=== PATIENT | female | born 1990 | race Two or more races ===

== ENCOUNTER 2018-09-14 01:11 | Emergency (ER) | payer OTHER ==
[~2018-09-14] VITALS: Ht 157.5 cm; Wt 113.4 kg
[2018-09-14 01:30] VITALS: BP 123/84
--- NOTE | 2018-09-14 01:30 | NUR ---
ED Nurse Note: pt walked in c/o kendal wrist pain for weeks, denies injuries. 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
--- NOTE | 2018-09-14 02:10 | NUR ---
ED Nurse Note: pt is cleared to be d/c per ERMD, pt left without discharge paperwork and signing papers, pt advised to follow up with pcp or return to ed, pt education done prior to d/c, pt d/c instruction was provided by ERMD. ambulatory w/ steady gait, all belongings left w/ pt, airway intact, resp even and unlabored.
--- NOTE | 2018-09-14 03:54 | Emergency Room Report ---
History of Present Illness General Chief Complaint: Upper Extremity Injury Source: Patient Present Illness HPI Patient presents with complaints of pain to both of her wrists Ongoing for several months Denies any fall or trauma Patient reports a she lifts heavy objects at work Denies any other repetitive motion such as typing Denies any elbow pain Denies any redness or swelling pain is worse with touch or full flexion and extension Allergies: Coded Allergies: No Known Allergies (Unverified , 09/14/18) Patient History Past Medical History: see triage record Pertinent Family History: none Last Menstrual Period: 08/30/2018 Now: No Reviewed Nursing Documentation: PMH: Agreed; PSxH: Agreed Nursing Documentation-PMH Past Medical History: No Stated History Review of Systems All Other Systems: negative except mentioned in HPI Physical Exam Vital Signs Date Time Temp Pulse Resp B/P (MAP) Pulse Ox O2 Delivery O2 Flow Rate FiO2 09/14/18 01:21 98.1 98 16 131/92 98 09/14/18 01:30 Room Air Sp02 EP Interpretation: reviewed, normal General Appearance: well appearing, no apparent distress Head: normocephalic, atraumatic Eyes: bilateral eye PERRL, bilateral eye EOMI ENT: normal pharynx Neck: supple Respiratory: no respiratory distress, no retraction Cardiovascular #1: regular rate, rhythm Gastrointestinal: non tender, soft Musculoskeletal: normal inspection - Subjectively points to the base of the thumb bilaterally for the discomfort however full extension flexion intact no reproduction of pain Neurologic: alert, oriented x3 Skin: normal color, no rash Lymphatic: no adenopathy Medical Decision Making Diagnostic Impression: Primary Impression: wrist pain, bilateral ER Course Patient has a fairly benign evaluation The clinical history does not correlate with obvious carpal tunnel type syndrome Patient also does not have her hand in extension such as typing or other repetitive motion After the medical evaluation is otherwise stable for close outpatient follow-up Last Vital Signs Date Time Temp Pulse Resp B/P (MAP) Pulse Ox O2 Delivery O2 Flow Rate FiO2 09/14/18 01:30 98.1 78 16 123/84 98 Room Air Status: unchanged Disposition: HOME, SELF-CARE Condition: Stable Scripts No Active Prescriptions or Reported Meds Referrals: [facility] Patient Instructions: Wrist Pain, [id number] Additional Instructions: Patient is provided with the discharge instructions notified to follow up with primary doctor in the next 2-3 days otherwise return to the er with any worsening symptoms. Please note that this report is being documented using DRAGON technology. This can lead to erroneous entry secondary to incorrect interpretation by the dictating instrument. Jannie Laboy DO Sep 14, 2018 03:54
== END 2018-09-14 02:20 | disposition home or self-care (01) ==
LOC: EMR 01:40
DX: M25.532 Pain in left wrist (principal); M25.531 Pain in right wrist; F17.200 Nicotine dependence, unspecified, uncomplicated; X50.0XXA Overexertion from strenuous movement or load, initial encounter; Y92.69 Other specified industrial and construction area as the place of occurrence of the external cause; Y99.9 Unspecified external cause status
CPT/HCPCS: 99281

== ENCOUNTER 2019-09-14 23:29 | Emergency (ER) | payer OTHER ==
[~2019-09-14] VITALS: Ht 157.5 cm; Wt 113.4 kg
--- NOTE | 2019-09-14 23:45 | NUR ---
ED Nurse Note: pt presents to ED c/o diffuse abd px x 10 days. pt denies N/V/D. dysuria x 2 days. patient ao4. vss. reports pain 10/10; facial grimacing and crying noted. patient ambulated to bed with steady gait. changed into gown; attached to monitor. safety measures met. will continue to monitor.
[2019-09-15] VITALS: BP 118/59
[2019-09-15] MEDS ORDERED: Morphine Sulfate 4mg/ml Inj (IV USE ONLY) IVP ONE
--- NOTE | 2019-09-15 | NUR ---
ED Nurse Note: iv access established. blood and urine collected; sent down to lab.
--- NOTE | 2019-09-15 00:01 | Emergency Room Report ---
History of Present Illness General Chief Complaint: Abdominal Pain Source: Patient Present Illness HPI This is a 29-year-old with no past medical history. She presents with complaint abdominal pain. Onset for a week and a half now. Pain is sharp and crampy in nature. Localized to the lower quadrants. Mostly in the right side however. Pain is 8 out of 10. No radiation. She is eating drinking without any problem. No nausea no vomiting or diarrhea. Nothing made it better. Movement made it worse. No urinary complaint. Never had this problem before. Allergies: Coded Allergies: No Known Allergies (Unverified , 09/14/18) Patient History Past Medical History: see triage record, old chart reviewed Past Surgical History: none Pertinent Family History: none Social History: Denies: smoking Last Menstrual Period: 09/03/19 Now: No : 4 Para: 4 Immunizations: other Reviewed Nursing Documentation: PMH: Agreed; PSxH: Agreed Review of Systems Eye: Denies: eye pain, blurred vision ENT: Denies: ear pain, nose congestion, throat swelling Respiratory: Denies: cough, shortness of breath Cardiovascular: Denies: chest pain, palpitations Gastrointestinal: Reports: abdominal pain; Denies: diarrhea, nausea, vomiting Musculoskeletal: Denies: back pain, joint pain Skin: Denies: rash Neurological: Denies: headache, numbness Endocrine: Denies: increased thirst, increased urine Hematologic/Lymphatic: Denies: easy bruising All Other Systems: negative except mentioned in HPI Physical Exam Vital Signs Date Time Temp Pulse Resp B/P (MAP) Pulse Ox O2 Delivery O2 Flow Rate FiO2 09/14/19 23:40 98.4 95 18 118/59 (78) 98 Vitals normal Sp02 EP Interpretation: reviewed, normal General Appearance: well appearing, no apparent distress, alert Head: normocephalic, atraumatic Eyes: bilateral eye PERRL, bilateral eye EOMI ENT: hearing grossly normal, normal pharynx Neck: full range of motion, supple, no meningismus Respiratory: chest non-tender, lungs clear, normal breath sounds Cardiovascular #1: regular rate, rhythm, no murmur Gastrointestinal: normal bowel sounds, no mass, no organomegaly, no bruit, non- distended, tenderness - Lower quadrants Musculoskeletal: back normal, normal range of motion, gait/station normal Psychiatric: mood/affect normal Medical Decision Making Diagnostic Impression: Primary Impression: Hepatitis Additional Impressions: Enteritis Methamphetamine abuse UTI (urinary tract infection) Qualified Codes: N30.00 - Acute cystitis without hematuria ER Course Patient with abdominal pain. CT scan showed possible enteritis. Will go ahead and put her on antibiotics is been going on for a while. She does have an elevated liver enzyme. May be secondary to hepatitis. She does have history of methamphetamine abuse. She said she smoked it. Denies any injection. She will need further work-up for her hepatitis. No evidence of acute abdomen. Will discharge home. CT/MRI/US Diagnostic Results CT/MRI/US Diagnostic Results : Imaging Test Ordered: CT abdomen pelvis Impression Read by radiologist. Wall thickening of the proximal small bowel loops. Prominent mesenteric nodes. Hepatomegaly. Last Vital Signs Date Time Temp Pulse Resp B/P (MAP) Pulse Ox O2 Delivery O2 Flow Rate FiO2 09/14/19 23:40 98.4 95 18 118/59 (78) 98 Status: improved Disposition: HOME, SELF-CARE Condition: Stable Scripts Ciprofloxacin Hcl* (CIPROFLOXACIN HCL*) 500 Mg Tablet 500 MG ORAL Q12H, #14 TAB 0 Refills Prov: Christopher Oquendo MD 09/15/19 Ibuprofen* (MOTRIN*) 600 Mg Tablet 600 MG ORAL THREE TIMES A DAY, #30 TAB 0 Refills Prov: Christopher Oquendo MD 09/15/19 Additional Instructions: Abstain from drugs and alcohol. Follow-up with your doctor in 7 days. You will need further work-up with repeat blood work on your liver. Return if symptoms worsen. Christopher Oquendo MD Sep 15, 2019 00:01
[2019-09-15 00:21] LABS: BASOPHILS % (AUTO) 0.5 % (0.0-2.0); EOSINOPHILS % (AUTO) 0.8 % (0.0-3.0); HEMATOCRIT 31.2 % (37.0-47.0); HEMOGLOBIN 10.3 G/DL (12.0-16.0); LYMPHOCYTES % (AUTO) 14.9 % (20.0-45.0); MEAN CORPUSCULAR VOLUME 78 FL (80-99); MONOCYTES % (AUTO) 5.4 % (1.0-10.0); NEUTROPHILS % (AUTO) 78.5 % (45.0-75.0); PLATELET COUNT 369 K/UL (150-450); RED BLOOD COUNT 3.98 M/UL (4.20-5.40); WHITE BLOOD COUNT 12.8 K/UL (4.8-10.8)
[2019-09-15 00:23] LABS: APPEARANCE,URINE CLEAR; BILIRUBIN, URINE NEGATIVE (NEGATIVE); GLUCOSE, URINE (UA) NEGATIVE (NEGATIVE); KETONES,URINE NEGATIVE (NEGATIVE); LEUKOCYTE ESTERASE ,URINE 2+ (NEGATIVE); NITRITE,URINE NEGATIVE (NEGATIVE); PH,URINE 5 (4.5-8.0); PROTEIN,URINE 1+ (NEGATIVE); UROBILINOGEN,URINE NORMAL MG/DL (0.0-1.0)
[2019-09-15 00:33] LABS: COLOR,URINE YELLOW
[2019-09-15 00:35] LABS: ANION GAP 9 mmol/L (5-15); BLOOD UREA NITROGEN 11 mg/dL (7-18); CALCIUM 8.4 MG/DL (8.5-10.1); CARBON DIOXIDE 30 MMOL/L (21-32); CHLORIDE 103 MMOL/L (98-107); CREATININE 0.7 MG/DL (0.55-1.30); POTASSIUM 3.7 MMOL/L (3.5-5.1); SODIUM 141 MMOL/L (136-145)
[2019-09-15 00:39] LABS: ALANINE AMINOTRANSFERASE 443 U/L (12-78); ALBUMIN 2.9 G/DL (3.4-5.0); ALBUMIN/GLOBULIN RATIO 0.6 (1.0-2.7); ALKALINE PHOSPHATASE 259 U/L (46-116); ASPARTATE AMINO TRANSFERASE 245 U/L (15-37); BILIRUBIN,TOTAL 0.3 MG/DL (0.2-1.0)
[2019-09-15] MEDS ORDERED: cefTRIAXone 1 GM in NS 55 ML IVPB ONE (00:45)
[2019-09-15 01:30] VITALS: BP 121/61
--- NOTE | 2019-09-15 01:48 | Diagnostic Imaging Report ---
Indication: Abdominal pain for 2 days Technique: Spiral acquisitions obtained through the abdomen and pelvis. No oral contrast utilized, per emergency room physician request No IV contrast utilized, per referring physician request.. Multiplanar reconstructions were generated. Total dose length product 1011 mGycm. CTDIvol(s) 16 mGy. Dose reduction achieved using automated exposure control Comparison: None Findings: Normal appendix. No evidence of diverticulosis or diverticulitis. A few mildly prominent small bowel loops are seen in the left upper quadrant with equivocal slight congestion of the mesentery. No free or loculated intraperitoneal gas or fluid is evident. Distal esophagus, stomach, duodenum are unremarkable. Lack of IV contrast limits assessment of the solid organs. The dome of the liver is excluded from imaging volume. No focal lesions demonstrated in the visualized portion of the liver. The liver is equivocally mildly enlarged The gallbladder has been surgically removed. No biliary ductal dilatation. The pancreas, spleen, adrenals, kidneys are unremarkable. There are prominent but not frankly enlarged mesenteric root lymph nodes. There are prominent but not frankly enlarged retroperitoneal and pelvic nodes. No pelvic mass. The uterus is unremarkable. Left ovary is slightly prominent. The included lung bases demonstrate some posterior dependent atelectatic changes. The bones demonstrate degenerative spondylosis changes. Impression: Limited exam due to exclusion of the dome of the liver from imaging volume Mildly prominent and possibly slightly thick walled left upper quadrant small bowel loops with slight mesenteric congestion, could indicate mild enteritis changes. Correlate with clinical findings Prominent left ovary, consider pelvic sonogram to better characterize Equivocal mild hepatomegaly This agrees with the preliminary interpretation provided overnight by [facility]erad[facility] service. The CT scanner at [facility] is accredited by the [employer] and the scans are performed using protocols designed to limit radiation exposure to as low as reasonably achievable to attain images of sufficient resolution adequate for diagnostic evaluation.
[2019-09-15] MEDS ORDERED: IBUPROFEN600 MG ORAL (01:50)
[2019-09-15] MEDS ORDERED: CIPROFLOXACIN500 M2 ORAL (01:50)
[2019-09-15 02:00] VITALS: BP 121/61
--- NOTE | 2019-09-15 02:02 | NUR ---
ER DISCHARGE NOTE: Patient is cleared to be discharged per ERMD, pt is aox4, on room air, with stable vital signs. pt was given dc and prescription instructions, pt was able to verbalize understanding, pt id band and iv site removed without complications. pt is able to ambulate with steady gait. pt took all belongings.
== END 2019-09-15 02:00 | disposition home or self-care (01) ==
LOC: EMR 23:59
DX: K75.9 Inflammatory liver disease, unspecified (principal); K52.9 Noninfective gastroenteritis and colitis, unspecified; F15.10 Other stimulant abuse, uncomplicated; N30.00 Acute cystitis without hematuria
CPT/HCPCS: 36415; 74176; 80053; 80307; 81003; 81025; 83690; 85025; 87086; 96361; 96365; 96375; J0696; J2270; J2405; J7030; Z7502; 99284

== ENCOUNTER 2019-10-02 08:53 | Emergency (ER) | payer OTHER ==
[~2019-10-02] VITALS: Ht 162.6 cm; Wt 77.1 kg
[~2019-10-02 08:53] MED LIST: CIPROFLOXACIN500 M2 ORAL; IBUPROFEN600 MG ORAL
[2019-10-02 09:10] VITALS: BP 122/70
--- NOTE | 2019-10-02 09:12 | NUR ---
ED Nurse Note: Patient walked in to ER from home due to Rt side of abdoman pain 10/10 for a month but got worsen this morning. pt aao x4 and ambulatory. calm but gramicing for pain at this moment. skin clean and intact. no cardiac or pulmonary distress noted. pt is in gown and on vamper.
[2019-10-02] MEDS ORDERED: Morphine Sulfate 4mg/ml Inj (IV USE ONLY) IVP ONE (09:15)
--- NOTE | 2019-10-02 09:33 | NUR ---
ED Nurse Note: US initiated at bedside.
--- NOTE | 2019-10-02 09:41 | Emergency Room Report ---
History of Present Illness General Chief Complaint: Abdominal Pain Source: Patient Present Illness HPI 29-year-old female history of methamphetamine abuse presented for right upper quadrant abdominal pain. Symptoms present for the past day or so. Seen 2 weeks ago in our ER. CT scan of the abdomen and pelvis demonstrated fatty liver with possible enteritis. Patient was given ciprofloxacin for urinary tract infection and discharged home. Patient completed antibiotic course however pain is been persistent. She denied any fevers, nausea, vomiting. She denies any urinary complaints. She denies any fever. On last visit patient's LFTs were elevated, she has a history of cholecystectomy in the past. Pain is 10 out of 10 right upper quadrant and nonradiating. Allergies: Coded Allergies: No Known Allergies (Unverified , 09/14/18) Patient History Past Medical History: see triage record Last Menstrual Period: a week ago Reviewed Nursing Documentation: PMH: Agreed; PSxH: Agreed Nursing Documentation-PMH Past Medical History: No History, Except For Review of Systems All Other Systems: negative except mentioned in HPI Physical Exam Vital Signs Date Time Temp Pulse Resp B/P (MAP) Pulse Ox O2 Delivery O2 Flow Rate FiO2 10/02/19 09:03 98.2 85 15 118/71 (87) 99 Room Air Sp02 EP Interpretation: reviewed, normal General Appearance: well appearing, no apparent distress Head: normocephalic, atraumatic Eyes: bilateral eye PERRL, bilateral eye EOMI ENT: hearing grossly normal, moist mucus membranes Neck: full range of motion, supple Respiratory: lungs clear, normal breath sounds, no rhonchi, no respiratory distress, no retraction, no wheezing Cardiovascular #1: normal peripheral pulses, regular rate, rhythm, no murmur Gastrointestinal: soft, non-distended, no guarding, other - Mild right upper quadrant tenderness to palpation Genitourinary: no CVA tenderness Neurologic: alert, oriented x3, no focal defects Skin: normal color, warm/dry Medical Decision Making Diagnostic Impression: Primary Impression: Urinary tract infection Additional Impressions: Right upper quadrant abdominal pain Methamphetamine abuse ER Course Differential diagnosis included but not limited to UTI, retained gallstone, hepatitis, fatty liver, pyelonephritis, kidney stone to name a few. Previous record was reviewed during last visit patient did have evidence of UTI also evidence of transaminitis. Patient does admit to using methamphetamine 2 days ago. Today transaminitis has resolved. Urinalysis still with evidence of UTI. I did obtain an ultrasound of the right upper quadrant which demonstrated fatty liver without evidence of biliary obstruction. Patient's pain was controlled in the ER. She had no active vomiting. Vital signs stable. No leukocytosis on laboratory studies noted. My plan is to discharge patient on continued oral antibiotic and analgesic and encouraged her to stop using methamphetamine, establish care with her primary doctor. She was given return precautions. Laboratory Tests Test 10/02/19 09:10 White Blood Count 9.8 K/UL (4.8-10.8) Red Blood Count 4.22 M/UL (4.20-5.40) Hemoglobin 10.4 G/DL (12.0-16.0) L Hematocrit 32.0 % (37.0-47.0) L Mean Corpuscular Volume 76 FL (80-99) L Mean Corpuscular Hemoglobin 24.7 PG (27.0-31.0) L Mean Corpuscular Hemoglobin Concent 32.5 G/DL (32.0-36.0) Red Cell Distribution Width 13.5 % (11.6-14.8) Platelet Count 354 K/UL (150-450) Mean Platelet Volume 6.8 FL (6.5-10.1) Neutrophils (%) (Auto) 66.0 % (45.0-75.0) Lymphocytes (%) (Auto) 23.0 % (20.0-45.0) Monocytes (%) (Auto) 7.8 % (1.0-10.0) Eosinophils (%) (Auto) 1.8 % (0.0-3.0) Basophils (%) (Auto) 1.3 % (0.0-2.0) Prothrombin Time 9.4 SEC (9.30-11.50) Prothrombin Time INR 0.9 (0.9-1.1) Activated Partial Thromboplast Time 25 SEC (23-33) Urine Color Pale yellow Urine Appearance Clear Urine pH 6 (4.5-8.0) Urine Specific [place] 1.020 (1.005-1.035) Urine Protein Negative (NEGATIVE) Urine Glucose (UA) Negative (NEGATIVE) Urine Ketones Negative (NEGATIVE) Urine Blood Negative (NEGATIVE) Urine Nitrite Negative (NEGATIVE) Urine Bilirubin Negative (NEGATIVE) Urine Urobilinogen Normal MG/DL (0.0-1.0) Urine Leukocyte Esterase 2+ (NEGATIVE) H Urine RBC 0 /HPF (0 - 2) Urine WBC 2-4 /HPF (0 - 2) Urine Squamous Epithelial Cells Few /LPF (NONE/OCC) Urine Bacteria Few /HPF (NONE) Urine HCG, Qualitative Negative (NEGATIVE) Sodium Level 138 MMOL/L (136-145) Potassium Level 4.0 MMOL/L (3.5-5.1) Chloride Level 104 MMOL/L (98-107) Carbon Dioxide Level 27 MMOL/L (21-32) Anion Gap 7 mmol/L (5-15) Blood Urea Nitrogen 15 mg/dL (7-18) Creatinine 0.8 MG/DL (0.55-1.30) Estimate Glomerular Filtration Rate > 60 mL/min (>60) Glucose Level 101 MG/DL (74-106) Calcium Level 8.1 MG/DL (8.5-10.1) L Total Bilirubin 0.1 MG/DL (0.2-1.0) L Aspartate Amino Transferase (AST) 19 U/L (15-37) Alanine Aminotransferase (ALT) 30 U/L (12-78) Alkaline Phosphatase 110 U/L (46-116) Total Protein 7.3 G/DL (6.4-8.2) Albumin 3.1 G/DL (3.4-5.0) L Globulin 4.2 g/dL Albumin/Globulin Ratio 0.7 (1.0-2.7) L Lipase 118 U/L (73-393) Urine Opiates Screen Negative (NEGATIVE) Urine Barbiturates Screen Negative (NEGATIVE) Phencyclidine (PCP) Screen Negative (NEGATIVE) Urine Amphetamines Screen Positive (NEGATIVE) H Urine Benzodiazepines Screen Negative (NEGATIVE) Urine Cocaine Screen Negative (NEGATIVE) Urine Marijuana (THC) Screen Negative (NEGATIVE) Last Vital Signs Date Time Temp Pulse Resp B/P (MAP) Pulse Ox O2 Delivery O2 Flow Rate FiO2 10/02/19 09:10 98.2 85 15 122/70 99 Room Air Status: improved Disposition: HOME, SELF-CARE Condition: Stable Scripts Naproxen* (NAPROXEN*) 500 Mg Tablet. 500 MG ORAL TWICE A DAY PRN for For Pain, #30 TAB Prov: Tyler Coyle M.D. 10/02/19 Nitrofurantoin Monohyd/M-Cryst* (MACROBID 100 MG*) 100 Mg Capsule 100 MG ORAL EVERY 12 HOURS for 10 Days, #20 CAP Prov: Tyler Coyle M.D. 10/02/19 Referrals: [facility]ERR[facility] (PCP) Additional Instructions: Patient is instructed to follow-up with her primary care doctor, primary care clinic or [facility] in 1 to 2 days. Patient instructed to return for any worsening symptoms or concerns. Please note that the documentation in this note was used with [email or web address] dictation technology. Pleae be advised that this may lead to erroneous text due to misinterpretation by the dictation software Tyler Coyle M.D. Oct 02, 2019 09:41
[2019-10-02 09:48] LABS: BASOPHILS % (AUTO) 1.3 % (0.0-2.0); EOSINOPHILS % (AUTO) 1.8 % (0.0-3.0); HEMOGLOBIN 10.4 G/DL (12.0-16.0); MEAN CORPUSCULAR VOLUME 76 FL (80-99); MONOCYTES % (AUTO) 7.8 % (1.0-10.0); PLATELET COUNT 354 K/UL (150-450); RED BLOOD COUNT 4.22 M/UL (4.20-5.40); RED CELL DISTRIBUTION WIDTH 13.5 % (11.6-14.8); WHITE BLOOD COUNT 9.8 K/UL (4.8-10.8)
[2019-10-02 09:52] LABS: APPEARANCE,URINE CLEAR; BILIRUBIN, URINE NEGATIVE (NEGATIVE); COLOR,URINE PALE YELLOW; GLUCOSE, URINE (UA) NEGATIVE (NEGATIVE); KETONES,URINE NEGATIVE (NEGATIVE); LEUKOCYTE ESTERASE ,URINE 2+ (NEGATIVE); NITRITE,URINE NEGATIVE (NEGATIVE); PH,URINE 6 (4.5-8.0); PROTEIN,URINE NEGATIVE (NEGATIVE); UROBILINOGEN,URINE NORMAL MG/DL (0.0-1.0)
[2019-10-02 09:58] LABS: ANION GAP 7 mmol/L (5-15); BLOOD UREA NITROGEN 15 mg/dL (7-18); CALCIUM 8.1 MG/DL (8.5-10.1); CARBON DIOXIDE 27 MMOL/L (21-32); CHLORIDE 104 MMOL/L (98-107); CREATININE 0.8 MG/DL (0.55-1.30); SODIUM 138 MMOL/L (136-145)
[2019-10-02 10:00] LABS: INR 0.9 (0.9-1.1)
[2019-10-02 10:03] LABS: ALANINE AMINOTRANSFERASE 30 U/L (12-78); ALBUMIN 3.1 G/DL (3.4-5.0); ALBUMIN/GLOBULIN RATIO 0.7 (1.0-2.7); ALKALINE PHOSPHATASE 110 U/L (46-116); ASPARTATE AMINO TRANSFERASE 19 U/L (15-37); BILIRUBIN,TOTAL 0.1 MG/DL (0.2-1.0)
--- NOTE | 2019-10-02 10:18 | NUR ---
ED Nurse Note: US done at bedside.
--- NOTE | 2019-10-02 10:27 | NUR ---
ED Nurse Note: ERMD at bedside explaining lab and US results.
[2019-10-02] MEDS ORDERED: NITROFURANTOIN100 M2 ORAL (10:32)
[2019-10-02 10:41] VITALS: BP 128/71
[2019-10-02] MEDS ORDERED: NAPROXEN500 M1 ORAL (10:41)
--- NOTE | 2019-10-02 10:43 | NUR ---
ER DISCHARGE NOTE: Patient is cleared to be discharged per ERMD, pt is aox4, on room air, with stable vital signs. pt was given dc and 2 prescription instructions, pt was able to verbalize understanding, pt id band and iv site removed without complications. pt is able to ambulate with steady gait. pt took all belongings.
--- NOTE | 2019-10-02 11:02 | Diagnostic Imaging Report ---
Indication: Abdominal pain, abnormal liver function tests Technique: Mcdaniels-scale and duplex images of the upper abdomen were obtained. Doppler interrogation of the hepatic and pancreatic vessels. Graded compression images of the right lower quadrant Comparison: No comparison sonograms. Reference made to CT scan 09/15/2019 Findings: The appendix, either normal or abnormal, could not be demonstrated. Gallbladder has been removed Common bile duct measures 6 mm in diameter. No intrahepatic biliary ductal dilatation. Liver demonstrates diffusely increased echogenicity, consistent with diffuse hepatocellular disease, most likely fatty change. Portal vein and hepatic veins are patent. Pancreas is unremarkable. Spleen is unremarkable. Left kidney measures 11.9 cm in length. Right kidney measures 13.7 cm length. Both kidneys demonstrate normal echogenicity. There is no hydronephrosis. No focal abnormality . Abdominal aorta is partially obscured by bowel gas, visualized portions are non-aneurysmal . Impression: Negative for dilated ducts. Absent gallbladder, status post cholecystectomy Nonvisualized appendix. Therefore nondiagnostic for the presence or absence of acute appendicitis. Liver demonstrates diffusely increased echogenicity, consistent with diffuse hepatocellular disease, most likely fatty change. Note incomplete visualization of the abdominal aorta
== END 2019-10-02 10:45 | disposition home or self-care (01) ==
LOC: EMR 09:12
DX: R10.11 Right upper quadrant pain (principal); N39.0 Urinary tract infection, site not specified; F15.10 Other stimulant abuse, uncomplicated; Z90.49 Acquired absence of other specified parts of digestive tract
CPT/HCPCS: 36415; 76700; 80053; 80307; 81003; 81025; 83690; 85025; 85610; 85730; 96361; 96374; J2270; J7030; Z7502; 99284

== ENCOUNTER 2020-04-13 12:32 | Emergency (ER) | payer OTHER ==
[~2020-04-13] VITALS: Ht 157.5 cm; Wt 127.0 kg
[~2020-04-13 12:32] MED LIST changes: +NAPROXEN500 M1 ORAL; +NITROFURANTOIN100 M2 ORAL
[2020-04-13 13:00] VITALS: BP 115/71
[2020-04-13] MEDS ORDERED: Omnipaque-300 100ml vial INJ PRN (13:45)
[2020-04-13 13:48] LABS: HEMATOCRIT 39.1 % (37.0-47.0); HEMOGLOBIN 12.2 G/DL (12.0-16.0); MEAN CORPUSCULAR VOLUME 66 FL (80-99); PLATELET COUNT 440 K/UL (150-450); RED BLOOD COUNT 5.93 M/UL (4.20-5.40); RED CELL DISTRIBUTION WIDTH 15.2 % (11.6-14.8); WHITE BLOOD COUNT 21.4 K/UL (4.8-10.8)
[2020-04-13] MEDS ORDERED: Morphine Sulfate 4mg/ml Inj (IV USE ONLY) IVP ONE (14:30)
--- NOTE | 2020-04-13 14:48 | Emergency Room Report ---
History of Present Illness General Chief Complaint: Nausea, Vomiting, and Diarrhea Source: Patient (Lisa Leyva DO) Present Illness HPI This patient complains diffuse abdominal pain but primarily in the epigastrium. Also with nausea, vomiting and diarrhea for the past day. She denies fever chills. She denies chest pain or shortness of breath. She denies cough or congestion. She has no other complaints. (Lisa Leyva DO) Allergies: Coded Allergies: No Known Allergies (Unverified , 09/14/18) COVID-19 Screening Contact w/high risk pt: No Experienced COVID-19 symptoms?: Yes COVID-19 Testing performed [employer]: No (Lisa Leyva DO) Patient History Past Medical History: none Social History: Denies: smoking, alcohol use, drug use Now: No Reviewed Nursing Documentation: PMH: Agreed; PSxH: Agreed (Lisa Leyva DO) Nursing Documentation-PMH Past Medical History: No History, Except For (Lisa Leyva DO) Review of Systems All Other Systems: negative except mentioned in HPI (Lisa Leyva DO) Physical Exam Vital Signs Date Time Temp Pulse Resp B/P (MAP) Pulse Ox O2 Delivery O2 Flow Rate FiO2 04/13/20 12:43 96.1 78 20 109/75 (86) 96 04/13/20 13:00 Room Air Sp02 EP Interpretation: reviewed, normal General Appearance: no apparent distress, alert, GCS 15, non-toxic, obese Head: normocephalic, atraumatic Eyes: bilateral eye normal inspection, bilateral eye PERRL ENT: hearing grossly normal, normal pharynx, no angioedema, normal voice Neck: full range of motion, supple/symm/no masses Respiratory: chest non-tender, lungs clear, normal breath sounds, no respiratory distress, no retraction, no accessory muscle use, speaking full sentences Cardiovascular #1: regular rate, rhythm, no edema Cardiovascular #2: 2+ carotid (R), 2+ carotid (L), 2+ radial (R), 2+ radial (L), 2+ dorsalis pedis (R), 2+ dorsalis pedis (L) Gastrointestinal: normal bowel sounds, soft, non-distended, no guarding, no rebound, tenderness - Diffusely TTP Rectal: deferred Musculoskeletal: back normal, normal range of motion, non-tender Neurologic: alert, motor strength/tone normal, oriented x3, sensory intact, responsive, speech normal Psychiatric: judgement/insight normal, memory normal, mood/affect normal, no suicidal/homicidal ideation Skin: no rash, normal color (Lisa Leyva DO) Medical Decision Making Diagnostic Impression: Primary Impression: Enterocolitis Additional Impressions: SBO (small bowel obstruction) UTI (urinary tract infection) Methamphetamine abuse Laboratory Tests Test 04/13/20 13:14 04/13/20 14:30 04/13/20 14:35 White Blood Count 21.4 K/UL (4.8-10.8) H Red Blood Count 5.93 M/UL (4.20-5.40) H Hemoglobin 12.2 G/DL (12.0-16.0) Hematocrit 39.1 % (37.0-47.0) Mean Corpuscular Volume 66 FL (80-99) L Mean Corpuscular Hemoglobin 20.6 PG (27.0-31.0) L Mean Corpuscular Hemoglobin Concent 31.3 G/DL (32.0-36.0) L Red Cell Distribution Width 15.2 % (11.6-14.8) H Platelet Count 440 K/UL (150-450) Mean Platelet Volume 7.0 FL (6.5-10.1) Neutrophils (%) (Auto) % (45.0-75.0) Lymphocytes (%) (Auto) % (20.0-45.0) Monocytes (%) (Auto) % (1.0-10.0) Eosinophils (%) (Auto) % (0.0-3.0) Basophils (%) (Auto) % (0.0-2.0) Differential Total Cells Counted 100 Neutrophils % (Manual) 89 % (45-75) H Lymphocytes % (Manual) 9 % (20-45) L Monocytes % (Manual) 2 % (1-10) Eosinophils % (Manual) 0 % (0-3) Basophils % (Manual) 0 % (0-2) Band Neutrophils 0 % (0-8) Platelet Estimate Adequate Platelet Morphology Normal Red Blood Cell Morphology Normal Sodium Level Pending Potassium Level Pending Chloride Level Pending Carbon Dioxide Level Pending Blood Urea Nitrogen Pending Creatinine Pending Estimated Glomerular Filtration Rate Pending Glucose Level Pending Calcium Level Pending Total Bilirubin Pending Aspartate Amino Transferase (AST) Pending Alanine Aminotransferase (ALT) Pending Alkaline Phosphatase Pending Total Protein Pending Albumin Pending Globulin Pending Lipase Pending Urine Color Pending Urine Appearance Pending Urine pH Pending Urine Specific Smoot Pending Urine Protein Pending Urine Glucose (UA) Pending Urine Ketones Pending Urine Blood Pending Urine Nitrite Pending Urine Bilirubin Pending Urine Urobilinogen Pending Urine Leukocyte Esterase Pending Urine HCG, Qualitative Pending (Lisa Leyva DO) ER Course Patient signed out by prior attending pending labs and CT. Patient has white count of 22,000. Patient's UA demonstrates 3+ leukoesterase with many bacteria. Patient given cefepime IV. Lactate is normal. Patient pancultured. Patient's UDS positive for methamphetamines. Patient CT demonstrates evidence for enterocolitis and possible early SBO. Patient is not actively vomiting. She does have a history of a cholecystectomy in the past. Patient will be transferred to [facility] for further treatment and evaluation. Case discussed with Laboratory Tests Test 04/13/20 13:14 04/13/20 14:30 04/13/20 14:35 04/13/20 15:20 White Blood Count 21.4 K/UL (4.8-10.8) H Red Blood Count 5.93 M/UL (4.20-5.40) H Hemoglobin 12.2 G/DL (12.0-16.0) Hematocrit 39.1 % (37.0-47.0) Mean Corpuscular Volume 66 FL (80-99) L Mean Corpuscular Hemoglobin 20.6 PG (27.0-31.0) L Mean Corpuscular Hemoglobin Concent 31.3 G/DL (32.0-36.0) L Red Cell Distribution Width 15.2 % (11.6-14.8) H Platelet Count 440 K/UL (150-450) Mean Platelet Volume 7.0 FL (6.5-10.1) Neutrophils (%) (Auto) % (45.0-75.0) Lymphocytes (%) (Auto) % (20.0-45.0) Monocytes (%) (Auto) % (1.0-10.0) Eosinophils (%) (Auto) % (0.0-3.0) Basophils (%) (Auto) % (0.0-2.0) Differential Total Cells Counted 100 Neutrophils % (Manual) 89 % (45-75) H Lymphocytes % (Manual) 9 % (20-45) L Monocytes % (Manual) 2 % (1-10) Eosinophils % (Manual) 0 % (0-3) Basophils % (Manual) 0 % (0-2) Band Neutrophils 0 % (0-8) Platelet Estimate Adequate Platelet Morphology Normal Red Blood Cell Morphology Normal Prothrombin Time 10.4 SEC (9.30-11.50) Prothrombin Time INR 0.9 (0.9-1.1) Activated Partial Thromboplast Time 23 SEC (23-33) Sodium Level 136 MMOL/L (136-145) Potassium Level 3.8 MMOL/L (3.5-5.1) Chloride Level 101 MMOL/L (98-107) Carbon Dioxide Level 22 MMOL/L (21-32) Anion Gap 13 mmol/L (5-15) Blood Urea Nitrogen 16 mg/dL (7-18) Creatinine 0.6 MG/DL (0.55-1.30) Estimated Glomerular Filtration Rate > 60 mL/min (>60) Glucose Level 150 MG/DL (74-106) H Calcium Level 8.3 MG/DL (8.5-10.1) L Magnesium Level 1.9 MG/DL (1.8-2.4) Total Bilirubin 0.5 MG/DL (0.2-1.0) Aspartate Amino Transferase (AST) 17 U/L (15-37) Alanine Aminotransferase (ALT) 30 U/L (12-78) Alkaline Phosphatase 111 U/L (46-116) Total Protein 8.5 G/DL (6.4-8.2) H Albumin 3.8 G/DL (3.4-5.0) Globulin 4.7 g/dL Albumin/Globulin Ratio 0.8 (1.0-2.7) L Lipase 75 U/L (73-393) Urine Color Yellow Urine Appearance Turbid Urine pH 5 (4.5-8.0) Urine Specific Smoot 1.025 (1.005-1.035) Urine Protein 2+ (NEGATIVE) H Urine Glucose (UA) Negative (NEGATIVE) Urine Ketones 1+ (NEGATIVE) H Urine Blood Negative (NEGATIVE) Urine Nitrite Negative (NEGATIVE) Urine Bilirubin Negative (NEGATIVE) Urine Urobilinogen Normal MG/DL (0.0-1.0) Urine Leukocyte Esterase 3+ (NEGATIVE) H Urine RBC 0 /HPF (0 - 2) Urine WBC 2-4 /HPF (0 - 2) Urine Squamous Epithelial Cells Few /LPF (NONE/OCC) Urine Amorphous Sediment Many /LPF (NONE) H Urine Bacteria Many /HPF (NONE) H Urine HCG, Qualitative Negative (NEGATIVE) Lactic Acid Level 1.60 mmol/L (0.4-2.0) Urine Opiates Screen Negative (NEGATIVE) Urine Barbiturates Screen Negative (NEGATIVE) Phencyclidine (PCP) Screen Negative (NEGATIVE) Urine Amphetamines Screen Positive (NEGATIVE) H Urine Benzodiazepines Screen Negative (NEGATIVE) Urine Cocaine Screen Negative (NEGATIVE) Urine Marijuana (THC) Screen Negative (NEGATIVE) Microbiology Date/Time Source Procedure Growth Status 04/13/20 17:10 Nasopharynx SARS-CoV-2 RdRp Gene Assay - Final Complete (Nadia Rausch M.D.) ER Course Urine culture received on 04/17/2020: Grew E. coli and mixed gram-positive organisms pansensitive to all antibiotics. Will fax over urine culture sensitivity to [facility] where patient was transferred on 04/13/2020 (Emelyn Hammond D.O.) Rhythm Strip Diag. Results Rhythm Strip Time: 19:07 EP Interpretation: yes - Nadia Rausch MD Rate: 86 bpm Rhythm: NSR, no PVC's, no ectopy (Nadia Rausch M.D.) Last Vital Signs Date Time Temp Pulse Resp B/P (MAP) Pulse Ox O2 Delivery O2 Flow Rate FiO2 04/13/20 13:00 97.0 71 20 115/71 98 Room Air ([facility]) Disposition: ADMITTED INPATIENT - Transfer to [facility] Condition: Critical Physician Consult: Dr. Jayden MD (Nadia Rausch M.D.) Referrals: [facility]ERR[facility] (PCP) [facility] Apr 13, 2020 14:48 Nadia Rausch M.D. Apr 13, 2020 19:08 Emelyn Hammond D.O. Apr 17, 2020 01:12
[2020-04-13 15:00] VITALS: BP 126/78
[2020-04-13 15:12] LABS: ANION GAP 13 mmol/L (5-15); BLOOD UREA NITROGEN 16 mg/dL (7-18); CALCIUM 8.3 MG/DL (8.5-10.1); CARBON DIOXIDE 22 MMOL/L (21-32); CHLORIDE 101 MMOL/L (98-107); CREATININE 0.6 MG/DL (0.55-1.30); POTASSIUM 3.8 MMOL/L (3.5-5.1); SODIUM 136 MMOL/L (136-145)
[2020-04-13 15:14] LABS: ALANINE AMINOTRANSFERASE 30 U/L (12-78); ALBUMIN 3.8 G/DL (3.4-5.0); ALBUMIN/GLOBULIN RATIO 0.8 (1.0-2.7); ALKALINE PHOSPHATASE 111 U/L (46-116); ASPARTATE AMINO TRANSFERASE 17 U/L (15-37); BILIRUBIN,TOTAL 0.5 MG/DL (0.2-1.0); INR 0.9 (0.9-1.1)
[2020-04-13 15:23] LABS: APPEARANCE,URINE TURBID; BILIRUBIN, URINE NEGATIVE (NEGATIVE); GLUCOSE, URINE (UA) NEGATIVE (NEGATIVE); KETONES,URINE 1+ (NEGATIVE); LEUKOCYTE ESTERASE ,URINE 3+ (NEGATIVE); NITRITE,URINE NEGATIVE (NEGATIVE); PH,URINE 5 (4.5-8.0); PROTEIN,URINE 2+ (NEGATIVE); UROBILINOGEN,URINE NORMAL MG/DL (0.0-1.0)
[2020-04-13 15:27] LABS: COLOR,URINE YELLOW
--- NOTE | 2020-04-13 15:27 | Diagnostic Imaging Report ---
Indication: Abdominal pain Technique: Multiplanar grayscale and duplex Doppler imaging of the abdomen Comparison: 10/01/2028; CT abdomen pelvis 09/14/2019 Findings: Technically limited exam due to patient body habitus. Imaged portions of the pancreas grossly unremarkable in appearance. Visualized portions of the abdominal aorta are normal in caliber. Liver is borderline enlarged with the right hepatic lobe measuring 17 cm in length. There is mild increased echogenicity. No focal hepatic mass lesion is appreciated sonographically. Main portal vein is patent with normal direction of flow. Patient again noted be status post cholecystectomy. Common bile duct measures 3.7 mm diameter, within normal limits. No appreciable intrahepatic biliary ductal dilatation. Spleen is normal in size measuring 9.9 cm in length. Kidneys demonstrate normal echogenicity. There is no hydronephrosis or sonographically appreciable stone. No ascites is demonstrated. IMPRESSION: Limited exam due to body habitus. Within these limitations: Status post cholecystectomy. No biliary ductal dilatation is identified. Increased hepatic echogenicity suggesting hepatic steatosis. Additional hepatocellular diseases should be excluded clinically.
[2020-04-13] MEDS ORDERED: Cefepime HCl 1 GM in D5W 55 ML IVPB ONE (15:45)
--- NOTE | 2020-04-13 16:42 | Diagnostic Imaging Report ---
Indication: Abdominal pain Technique: CT of the abdomen and pelvis utilizing automated exposure control with intravenous contrast. Venous scanning performed. Axial, sagittal and coronal reformats presented. CT dose: Total DLP 1247.9 mGycm; CTDI vol 20.9 mGy Comparison: 09/14/2019 Findings: Minimal dependent atelectatic changes noted in the lung bases. Liver is borderline enlarged. Patient again noted be status post cholecystectomy. There is mild biliary ductal prominence may be related to postcholecystectomy state. No focal hepatic mass lesion identified. Spleen, adrenal glands and pancreas unremarkable. No peripancreatic inflammatory changes or fluid collections. Kidneys enhance symmetrically. There is no urinary tract stone, hydronephrosis or perinephric stranding. Bladder is decompressed, precluding reliable evaluation. Fluid attenuation is noted within the uterus which may be physiologic in this reproductive age female. Small follicles versus cysts noted in the right ovary. There is no free intraperitoneal air or fluid. Appendix is normal in caliber and there are no periappendiceal inflammatory changes. The stomach is distended with ingested material. There is dilatation of some small bowel loops in the left hemiabdomen which measure up to 4 cm transverse. There is some wall thickening and hyperenhancement. There is also fluid attenuation within the colon. No discrete transition point is identified. Abdominal aorta is normal in caliber. There are small mesenteric lymph nodes which are nonspecific and possibly reactive in etiology. No acute osseous abnormality. IMPRESSION: * Findings suggesting an enterocolitis. Associated mild dilatation of small bowel loops in the left abdomen may be related to suspected enteritis. Partial or developing small bowel obstruction not excluded. Correlation with clinical findings recommended. * Normal appendix. * Status post cholecystomy. * Mild biliary ductal prominence may be related to postcholecystectomy state. Correlation with LFTs recommended. [place] [facility] [place] [employer] and the scans are performed using protocols designed to limit radiation exposure to as low as reasonably achievable to attain images of sufficient resolution adequate for diagnostic evaluation.
[2020-04-13 17:55] VITALS: BP 130/80
[2020-04-13 21:09] VITALS: BP 132/85
== END 2020-04-13 21:09 | disposition short-term general hospital (02) ==
LOC: EMR 13:05
DX: K52.9 Noninfective gastroenteritis and colitis, unspecified (principal); K31.89 Other diseases of stomach and duodenum; N39.0 Urinary tract infection, site not specified; F15.10 Other stimulant abuse, uncomplicated; E66.9 Obesity, unspecified; Z90.49 Acquired absence of other specified parts of digestive tract; Z68.43 Body mass index [BMI] 50.0-59.9, adult
CPT/HCPCS: 36415; 74177; 76700; 80053; 80307; 81003; 81025; 83605; 83690; 83735; 85007; 85025; 85610; 85730; 86850; 86900; 86901; 87040; 87086; 87181; 96361; 96365; 96367; 96375; 96376; J0692; J2270; J2405; J7030; Q9965; U0002; Z7502; 99285